=== PATIENT | male | born 1990 | race Two or more races ===

== ENCOUNTER 2018-01-12 19:53 | Emergency (ER) | payer SELFPAY ==
[~2018-01-12] VITALS: Ht 172.7 cm; Wt 72.6 kg
[2018-01-12] MEDS ORDERED: NKM (20:15)
[2018-01-12] MEDS ORDERED: Lidocaine 2% Visc 15ml soln ORAL ONE (20:30)
[2018-01-12] MEDS ORDERED: Acetaminophen Soln 160mg/5ml ORAL ONE (20:30)
[2018-01-12 21:00] VITALS: BP 102/61
--- NOTE | 2018-01-12 21:12 | Emergency Room Report ---
History of Present Illness General Chief Complaint: Fever Source: Patient Present Illness HPI 27-year-old male presents to the emergency department complaining of 10 out of 10 in severity pain in the mouth that he describes as burning sensation and he reports multiple sores in the mouth he also reports fevers he denies cough, recent travel or ill contacts. Patient denies significant past medical history or history of immunocompromise. He denies neck pain or stiffness, photophobia, sudden severe headaches. He reports pain is exacerbated upon swallowing Allergies: Coded Allergies: No Known Allergies (Unverified , 01/12/18) Nursing Documentation-[facility] Past Medical History: No Stated History Review of Systems All Other Systems: negative except mentioned in HPI Physical Exam Vital Signs Date Time Temp Pulse Resp B/P (MAP) Pulse Ox O2 Delivery O2 Flow Rate FiO2 01/12/18 20:12 102.8 102 16 102/61 95 Room Air 102.7 Medical Decision Making PA Attestation Dr. Claudio is my supervising Physician whom patient management has been discussed with. Diagnostic Impression: Primary Impression: Viral syndrome Additional Impressions: Acute viral syndrome Gingivostomatitis ER Course Pt. presents to the ED c/o lesions in the mouth [ ] Ddx considered but are not limited to: stomatitis, up from his ulcers, oral thrush, HFM, koplik spots, HSV, dental abscess, [employer], tonsiliths. Vital signs: are WNL, pt. is afebrile H&PE are most consistent with [ ] ORDERS: none required at this time, the diagnosis is clinical ED INTERVENTIONS: None required at this time. DISCHARGE: At this time pt. is stable for d/c to home. Will provide printed patient care instructions, and any necessary prescriptions. Care plan and follow up instructions have been discussed with the patient prior to discharge. Last Vital Signs Date Time Temp Pulse Resp B/P (MAP) Pulse Ox O2 Delivery O2 Flow Rate FiO2 01/12/18 20:45 102.8 01/12/18 20:12 102 16 102/61 95 Room Air Disposition: HOME, SELF-CARE Condition: Stable Scripts Chlorhexidine Gluconate (CHLORHEXIDINE GLUCONATE) 473 Ml Mouthwash 15 ML MM BID, #473 ML Prov: Mindy Ray 01/12/18 Acetaminophen* (TYLENOL EXTRA STRENGTH*) 500 Mg Tablet 500 MG ORAL Q6H PRN for Mild Pain/Temp > 100.5, #30 TAB 0 Refills Prov: Mindy Ray 01/12/18 Lidocaine HCl 2% Viscous (Lidocaine HCl 2% Viscous) 100 Ml Solution 15 ML ORAL QID, #200 ML Prov: Mindy Ray 01/12/18 Acyclovir* (ZOVIRAX*) 800 Mg Tablet 800 MG ORAL FIVE TIMES A DAY for 7 Days, #35 TAB Prov: Mindy Ray 01/12/18 Referrals: NOT CHOSEN IPA/MD,REFERRING (PCP) Patient Instructions: Primary Herpetic Gingivostomatitis, Pediatric Additional Instructions: Take medications as directed. Follow up with a Primary Care Provider in 3-5 days, even if your symptoms have resolved. --Please review list of primary care clinics, if you do not already have a primary care provider Return sooner to ED if new symptoms occur, or current symptoms become worse. - Please note that this Emergency Department Report was dictated using [employer] technology software, occasionally this can lead to erroneous entry secondary to interpretation by the dictation equipment. Mindy Ray Jan 12, 2018 21:12
[2018-01-12] MEDS ORDERED: ACYCLOVIR800 MG ORAL (21:13)
[2018-01-12] MEDS ORDERED: LIDOCAINE VISC100 ML ORAL (21:13)
[2018-01-12] MEDS ORDERED: TYLENOL EXTRA500 MG ORAL (21:13)
[2018-01-12] MEDS ORDERED: CHLORHEXIDINE473 ML MM (21:14)
[2018-01-12 21:45] VITALS: BP 104/63
== END 2018-01-12 21:45 | disposition home or self-care (01) ==
LOC: EMR 20:30
DX: B34.9 Viral infection, unspecified (principal); K05.10 Chronic gingivitis, plaque induced
CPT/HCPCS: 99283